=== PATIENT | male | born 1970 | race African-American/Black ===

== ENCOUNTER 2018-05-08 13:04 | Inpatient (IN) | payer OTHER ==
[~2018-05-08] VITALS: Ht 180.3 cm; Wt 153.8 kg
[2018-05-08 13:10] VITALS: Ht 180.3 cm; Wt 153.8 kg
[2018-05-08 13:40] LABS: BASOPHIL % 1.2 % (0-2); PLATELET COUNT 138 x10^3mcL (130-400)
[2018-05-08 14:10] LABS: RED CELL DISTRIBUTION WIDTH 15.8 % (11.5-14.5)
[2018-05-08 14:12] LABS: CALCIUM 8.6 mg/dL (8.5-10.1); CHLORIDE SERUM 106 mmol/L (98-107); CREATININE SERUM 0.9 mg/dL (0.7-1.3); GFR1 > 60 mL/min; GLUCOSE SERUM 108 mg/dL (74-106); POTASSIUM SERUM 3.7 mmol/L (3.5-5.1); SODIUM SERUM 138 mmol/L (136-145)
[2018-05-08 14:17] LABS: ALKALINE PHOSPHATASE 78 U/L (46-116); ALT/SGPT 46 U/L (16-63); AST/SGOT 26 U/L (15-37); BILIRUBIN TOTAL 0.5 mg/dL (0.20-1.00); LIPASE 66 IU/L (73-393)
[2018-05-08 14:19] LABS: ALBUMIN 3.3 g/dL (3.4-5.0)
[2018-05-08 14:50] LABS: AMPHETAMINE QUAL UR NONE DETECTED (See below)
[2018-05-08] MEDS ORDERED: LANTUS SOLOS100 U/M1 SQ (15:00)
[2018-05-08] MEDS ORDERED: LISINOPRIL40 MG PO (15:00)
[2018-05-08] MEDS ORDERED: GOOD SENSE ASPI81 M3 PO (15:00)
[2018-05-08] MEDS ORDERED: PANTOPRAZOLE SO40 M1 PO (15:01)
[2018-05-08] MEDS ORDERED: ATORVASTATIN CA20 M1 PO (15:02)
[2018-05-08] MEDS ORDERED: NOR5 PO (15:03)
[2018-05-08] MEDS ORDERED: ABILIFY20 M1 PO (15:03)
[2018-05-08] MEDS ORDERED: TOPROL XL25 MG PO (15:03)
[2018-05-08] MEDS ORDERED: CYMBALTA60 M1 PO (15:04)
[2018-05-08] MEDS ORDERED: FLUOXETINE40 MG PO (15:05)
[2018-05-08] MEDS ORDERED: REPLENS1 CRE (15:05)
[2018-05-08 16:10] VITALS: BP 131/89
[2018-05-08 16:11] LABS: MAGNESIUM 1.8 mg/dL (1.8-2.4)
[2018-05-08 16:13] LABS: CHOLESTEROL/HDL RATIO 2.7
[2018-05-08 16:57] LABS: UA SPECIFIC GRAVITY 1.025 (1.005-1.035); microscopic required? YES; urine erythrocyte NEGATIVE (NEGATIVE)
[2018-05-08 20:32] VITALS: BP 131/81
[2018-05-09 05:16] VITALS: BP 124/86
[2018-05-09 06:14] LABS: BASOPHIL % 0.6 % (0-2)
[2018-05-09 06:25] LABS: CALCIUM 8.8 mg/dL (8.5-10.1); CARBON DIOXIDE 30.3 mmol/L (21-32); CHLORIDE SERUM 106 mmol/L (98-107); GFR1 > 60 mL/min; GLUCOSE SERUM 79 mg/dL (74-106); POTASSIUM SERUM 4.5 mmol/L (3.5-5.1); SODIUM SERUM 140 mmol/L (136-145)
[2018-05-09 07:04] LABS: PLATELET COUNT 125 x10^3mcL (130-400); RED CELL DISTRIBUTION WIDTH 15.1 % (11.5-14.5)
[2018-05-09 08:30] VITALS: BP 132/90
[2018-05-09 16:12] VITALS: BP 139/94
[2018-05-09 20:51] VITALS: BP 134/83
[2018-05-10 05:46] VITALS: BP 126/88
[2018-05-10 08:01] VITALS: BP 132/89
[2018-05-10 12:27] VITALS: BP 145/98
[2018-05-10 17:28] VITALS: BP 139/97
[2018-05-10 20:44] VITALS: BP 128/88
[2018-05-11 05:28] VITALS: BP 147/88
[2018-05-11 09:16] VITALS: BP 129/95
[2018-05-11 13:13] VITALS: BP 132/97
[2018-05-11 15:16] VITALS: BP 132/97
[2018-05-11 17:29] VITALS: BP 140/99
== END 2018-05-11 19:50 | disposition other institution (70) | DRG 311 ==
LOC: ED 13:04 → DU 14:55
PROVIDERS: Emergency Medicine; Internal Medicine
DX: I24.9 Acute ischemic heart disease, unspecified (principal); Z68.42 Body mass index [BMI] 45.0-49.9, adult; I25.10 Atherosclerotic heart disease of native coronary artery without angina pectoris; E11.65 Type 2 diabetes mellitus with hyperglycemia; E78.5 Hyperlipidemia, unspecified; I44.4 Left anterior fascicular block; E66.9 Obesity, unspecified; I10 Essential (primary) hypertension; Z79.899 Other long term (current) drug therapy; Z79.82 Long term (current) use of aspirin; Z79.4 Long term (current) use of insulin
CPT/HCPCS: 82962; 85378; 90658; A9500; J1885; J2270; J2785; Q0092

== ENCOUNTER 2018-07-04 16:02 | Emergency (ER) | payer OTHER ==
[~2018-07-04] VITALS: Ht 180.3 cm; Wt 152.4 kg
[~2018-07-04 16:02] MED LIST: ABILIFY20 M1 PO; ATORVASTATIN CA20 M1 PO; CYMBALTA60 M1 PO; FLUOXETINE40 MG PO; GOOD SENSE ASPI81 M3 PO; LANTUS SOLOS100 U/M1 SQ; LISINOPRIL40 MG PO; NOR5 PO; PANTOPRAZOLE SO40 M1 PO; REPLENS1 CRE; TOPROL XL25 MG PO
[2018-07-04 16:16] VITALS: Ht 180.3 cm; Wt 152.4 kg
[2018-07-04 16:48] LABS: BASOPHIL % 0.4 % (0-2); PLATELET COUNT 137 x10^3mcL (130-400)
[2018-07-04 16:49] LABS: RED CELL DISTRIBUTION WIDTH 16.4 % (11.5-14.5)
[2018-07-04 17:00] LABS: CALCIUM 9.3 mg/dL (8.5-10.1); CARBON DIOXIDE 26.9 mmol/L (21-32); CHLORIDE SERUM 106 mmol/L (98-107); GFR1 > 60 mL/min; GLUCOSE SERUM 84 mg/dL (74-106); POTASSIUM SERUM 3.8 mmol/L (3.5-5.1); SODIUM SERUM 143 mmol/L (136-145)
[2018-07-04 17:10] LABS: ALBUMIN 3.5 g/dL (3.4-5.0); ALKALINE PHOSPHATASE 85 U/L (46-116); ALT/SGPT 33 U/L (16-63); AST/SGOT 22 U/L (15-37); BILIRUBIN TOTAL 0.4 mg/dL (0.20-1.00); TOTAL PROTEIN, SERUM 7.6 g/dL (6.4-8.2)
[2018-07-04 18:29] VITALS: BP 165/107
== END 2018-07-04 18:33 | disposition home or self-care (01) ==
LOC: ED 16:02
PROVIDERS: Emergency Medicine
DX: R07.89 Other chest pain (principal); I10 Essential (primary) hypertension; E11.9 Type 2 diabetes mellitus without complications; E78.5 Hyperlipidemia, unspecified; E66.9 Obesity, unspecified; M19.90 Unspecified osteoarthritis, unspecified site; K21.9 Gastro-esophageal reflux disease without esophagitis; F32.9 Major depressive disorder, single episode, unspecified; F14.20 Cocaine dependence, uncomplicated; F11.20 Opioid dependence, uncomplicated
CPT/HCPCS: 36415; 83880; 85378; J1885; Q0092